=== PATIENT | female | born 1950 | race Caucasian/White ===

== ENCOUNTER → 2024-04-24 | Outpatient (REF) | payer MEDICARE | LOC: DX 09:52 | PROVIDERS: ATTEND Surgery | DX: K21.9 Gastro-esophageal reflux disease without esophagitis (principal); K44.9 Diaphragmatic hernia without obstruction or gangrene | CPT/HCPCS: 74246 ==

== ENCOUNTER 2024-05-21 07:54 | Inpatient (IN) | payer MEDICARE ==
[2024-05-18 10:15] LABS: BASOPHILS % 0.3 % (0.0-1.0); EOSINOPHILS # (AUTO) 0.2 (0.0-0.4); EOSINOPHILS % 1.8 % (0.0-6.0); HEMATOCRIT 37.4 % (34.2-44.1); HEMOGLOBIN 12.4 g/dL (12.0-16.0); LYMPHOCYTES # (AUTO) 2.5 (1.0-3.2); LYMPHOCYTES % 26.9 % (18.0-39.1); MEAN CORPUSCULAR HEMOGLOBIN 28.7 pg (28-32); MEAN CORPUSCULAR HGB CONC 33.2 g/dL (31-35); MEAN CORPUSCULAR VOLUME 86.6 fL (81-99); MONOCYTES # (AUTO) 1.1 (0.2-0.8); MONOCYTES % 11.2 % (4.4-11.3); NEUTROPHILS # (AUTO) 5.5 (2.1-6.9); NEUTROPHILS % 59.4 % (38.7-80.0); PLATELET COUNT 251 x10e3/uL (140-360); RED BLOOD COUNT 4.32 x10e6/uL (3.6-5.1); RED CELL DISTRIBUTION WIDTH 13.3 % (11.7-14.4); WHITE BLOOD COUNT 9.34 x10e3/uL (4.8-10.8)
[2024-05-18 10:41] LABS: ALBUMIN 4.6 g/dL (3.5-5.0); ALBUMIN/GLOBULIN RATIO 1.6 (0.8-2.0); ANION GAP 13.2 mmol/L (8-16); BILIRUBIN,TOTAL 0.7 mg/dL (0.2-1.2); CALCIUM 9.5 mg/dL (8.4-10.2); CREATININE, SERUM 0.74 mg/dL (0.57-1.11); POTASSIUM 4.2 mmol/L (3.5-5.1); TOTAL PROTEIN 7.5 g/dL (6.5-8.1)
[~2024-05-21] VITALS: Ht 149.9 cm; Wt 77.1 kg
[~2024-05-21 07:54] MED LIST: CALCIUM600 MG PO; CARVEDILOL3.125 MG PO; CITALOPRAM10 MG/5 ML PO; D3-5000125 MCG; DIOVAN160 MG PO; IBANDRONATE SO150 MG; LIPITOR20 MG PO; MULTI-VITAMIN1 EACH PO; MYRBETRIQ25 MG PO; NEXIUM40 MG PO; PRESERVISION A1 EAC3; QUNOL MEGA COQ100 MG; WELLBUTRIN XL300 MG PO
[2024-05-21] MEDS ORDERED: ACETAMINOPHEN 1000 MG/100 ML 0 ML IV ONE (09:58)
[2024-05-21] MEDS ORDERED: ROCURONIUM BROMIDE 0 ML IV ONE (09:58)
[2024-05-21] MEDS ORDERED: PROPOFOL IV EMULSION 10 MG/ML 20 ML VIAL ONE (09:58)
[2024-05-21] MEDS ORDERED: FENTANYL CITRATE/PF 100MCG/2 ML INJ ONE (09:58)
[2024-05-21] MEDS ORDERED: LIDOCAINE HCL 2% LOCAL INJ 5 ML SDV VIAL INJ ONE (09:58)
[2024-05-21] MEDS ORDERED: SEVOFLURANE INHAL SOLN 250 ML PEN BTL ONE (09:58)
[2024-05-21] MEDS ORDERED: HYDROMORPHONE 1MG/1ML INJ IV PRN (13:00)
[2024-05-21] MEDS ORDERED: ONDANSETRON HCL INJ 2MG/ML 2ML 2 MG/ML VIAL IV PRN (13:00)
[2024-05-21] MEDS ORDERED: ACETAMINOPHEN 1000 MG/100 ML IV PRN (13:00)
[2024-05-21] MEDS: SODIUM CHLORIDE 0.9% 250ML IRRIG IR SCH (13:00)
[2024-05-21 14:45] VITALS: BP 141/59; PULSE 84; RESP 16; TEMP 98.2; O2SAT 95
[2024-05-21] MEDS: SODIUM CHLORIDE 0.9% 1000ML 1,000 ML IV SCH (15:14)
[2024-05-21 16:50] VITALS: BP 141/59; PULSE 84; RESP 16; TEMP 98.2; O2SAT 98
[2024-05-21 17:41] VITALS: PULSE 100; RESP 16; O2SAT 94
[2024-05-21] MEDS: LACTATED RINGER'S 1,000 ML ONE (19:23)
[2024-05-21] MEDS: SUGAMMADEX SODIUM 200 MG/2 ML VIAL IV ONE (19:24)
[2024-05-21 21:55] VITALS: BP 151/62; PULSE 95; RESP 20; TEMP 98.7; O2SAT 97
[2024-05-22] VITALS (7 sets, daily range): BP systolic 146–160; BP diastolic 55–74; PULSE 84–96; RESP 17–20; TEMP 98–99; O2SAT 96–100
[2024-05-22 05:07] LABS: BASOPHILS % 0.2 % (0.0-1.0); EOSINOPHILS % 0.1 % (0.0-6.0); HEMATOCRIT 32.5 % (34.2-44.1); HEMOGLOBIN 10.7 g/dL (12.0-16.0); LYMPHOCYTES # (AUTO) 1.4 (1.0-3.2); LYMPHOCYTES % 8.7 % (18.0-39.1); MEAN CORPUSCULAR HEMOGLOBIN 28.8 pg (28-32); MEAN CORPUSCULAR HGB CONC 32.9 g/dL (31-35); MEAN CORPUSCULAR VOLUME 87.4 fL (81-99); MONOCYTES # (AUTO) 1.3 (0.2-0.8); MONOCYTES % 8.6 % (4.4-11.3); NEUTROPHILS # (AUTO) 12.8 (2.1-6.9); NEUTROPHILS % 81.9 % (38.7-80.0); PLATELET COUNT 193 x10e3/uL (140-360); RED BLOOD COUNT 3.72 x10e6/uL (3.6-5.1); RED CELL DISTRIBUTION WIDTH 13.4 % (11.7-14.4); WHITE BLOOD COUNT 15.59 x10e3/uL (4.8-10.8)
[2024-05-22 05:30] LABS: ANION GAP 14.9 mmol/L (8-16); CALCIUM 8.4 mg/dL (8.4-10.2); CREATININE, SERUM 0.66 mg/dL (0.57-1.11); POTASSIUM 3.9 mmol/L (3.5-5.1)
[2024-05-23] VITALS: BP 162/71; PULSE 93; RESP 19; TEMP 98.1; O2SAT 96
[2024-05-23 07:17] LABS: BASOPHILS % 0.1 % (0.0-1.0); EOSINOPHILS % 0.2 % (0.0-6.0); HEMATOCRIT 32.9 % (34.2-44.1); HEMOGLOBIN 10.6 g/dL (12.0-16.0); LYMPHOCYTES # (AUTO) 1.3 (1.0-3.2); LYMPHOCYTES % 8.8 % (18.0-39.1); MEAN CORPUSCULAR HEMOGLOBIN 28.5 pg (28-32); MEAN CORPUSCULAR HGB CONC 32.2 g/dL (31-35); MEAN CORPUSCULAR VOLUME 88.4 fL (81-99); MONOCYTES # (AUTO) 1.8 (0.2-0.8); MONOCYTES % 11.9 % (4.4-11.3); NEUTROPHILS # (AUTO) 11.6 (2.1-6.9); NEUTROPHILS % 78.3 % (38.7-80.0); PLATELET COUNT 170 x10e3/uL (140-360); RED BLOOD COUNT 3.72 x10e6/uL (3.6-5.1); RED CELL DISTRIBUTION WIDTH 13.9 % (11.7-14.4); WHITE BLOOD COUNT 14.85 x10e3/uL (4.8-10.8)
[2024-05-23 07:30] VITALS: BP 145/58; PULSE 75; RESP 15; TEMP 98.6; O2SAT 100
[2024-05-23 07:36] LABS: ANION GAP 12.6 mmol/L (8-16); CALCIUM 8.6 mg/dL (8.4-10.2); CREATININE, SERUM 0.57 mg/dL (0.57-1.11); POTASSIUM 3.6 mmol/L (3.5-5.1)
[2024-05-23 09:14] VITALS: BP 145/58; PULSE 75; RESP 15; TEMP 98.6; O2SAT 100
[2024-05-23 11:25] VITALS: BP 166/59; PULSE 81; RESP 17; TEMP 98.6; O2SAT 97
[2024-05-23 15:29] VITALS: BP 173/76; PULSE 83; RESP 17; TEMP 99.2; O2SAT 98
== END 2024-05-23 17:35 | disposition home or self-care (01) | DRG 328 ==
LOC: OR 07:54 → PACU V 13:02 → MED/SURG 14:08
PROVIDERS: ADMIT Surgery; ATTEND Surgery
PROC: 0BQT4ZZ Repair Diaphragm, Percutaneous Endoscopic Approach (ICD-10-PCS; 2024-05-21)
PROC: 0DV44ZZ Restriction of Esophagogastric Junction, Percutaneous Endoscopic Approach (ICD-10-PCS; principal; 2024-05-21 10:21)
DX: K44.9 Diaphragmatic hernia without obstruction or gangrene (principal); K21.9 Gastro-esophageal reflux disease without esophagitis; I10 Essential (primary) hypertension
CPT/HCPCS: 36415; 71046; 80048; 80053; 85025; 93005; 94799; C1766; J2003; J2470; J7030